=== PATIENT | male | born 1955 | race Caucasian/White ===

== ENCOUNTER → 2020-10-06 04:18 | Outpatient (CLI) | payer OTHER, SELFPAY ==
[2020-10-06 19:03] LABS: SARS-CoV-2 RNA PCR Negative
== END ==
PROVIDERS: PCP Family Medicine; Visit Provider Otolaryngology
DX: Z01.812 Encounter for preprocedural laboratory examination (principal); Z20.822 Contact with and (suspected) exposure to COVID-19
CPT/HCPCS: C9803; U0003; U0005

== ENCOUNTER 2020-10-06 09:45 | Outpatient (CLI) | payer MEDICARE, MEDICAID, SELFPAY ==
--- NOTE | 2020-10-06 09:52 | ECG_ITS ---
Measurements Intervals [place] Rate: 76 P: 62 WI: 161 QRS: -20 QRSD: 141 T: 10 QT: 387 QTc: 437 Interpretive Statements SINUS RHYTHM RIGHT BUNDLE BRANCH BLOCK ABNORMAL ECG Electronically Signed On 10-06-2020 10:01:47 CDT by Antwon Armenta D.O.
== END 2020-10-06 09:46 | disposition home or self-care (01) ==
LOC: ANHSURGERY 09:48
PROVIDERS: PCP Family Medicine; Visit Provider Otolaryngology
DX: I10 Essential (primary) hypertension (principal); Z01.818 Encounter for other preprocedural examination; Z20.822 Contact with and (suspected) exposure to COVID-19; I45.10 Unspecified right bundle-branch block
CPT/HCPCS: 93005; C9803; U0003; U0005

== ENCOUNTER 2020-10-09 02:11 | Day surgery (SDC) | payer OTHER, SELFPAY ==
[2020-10-02 11:40] VITALS: BMI 30.4
--- NOTE | 2020-10-08 09:12 | PM.IMHP ---
H&P: HPI History of Present Illness Date/Time: 10/08/20 09:12 Patient presents for planned septoplasty and turbinate reduction. Reports no new symptoms or changes in his medical history. Chief Complaint: Nasal obstruction, septal deviation, inferior turbinate hypertrophy Review of Systems Constitutional: Constitutional: Denies fatigue, Denies fever(s) and Denies lethargy Eyes: Eyes: Denies blurry vision and Denies change in vision ENT: Reports as per HPI Cardiovascular: Cardiovascular: Denies chest pain Respiratory: Respiratory: Denies cough Endocrine: Endocrine: Denies fatigue Hematologic/Lymphatic: Hematologic/Lymphatic: Denies easy bleeding, Denies easy bruising and Denies lymphadenopathy Allergic/Immunologic: Allergic/Immunologic: Denies seasonal rhinorrhea [facility] Social History Social History (Updated 09/21/20 @ 08:30 by Inez Canales [facility]) Smoking status: Never smoker Alcohol intake: current Drinks per week: 12 Substance use: never Additional living arrangements comments: SIGNIFICANT OTHER Spiritual care concerns: No Meds Home Medications and Allergies Home Medications Medication Instructions Recorded Confirmed Type amlodipine-benazepril 1 cap PO QAM 10/02/20 10/02/20 History fluticasone propionate 1 spray INTRANASAL QAM 10/02/20 10/02/20 History loratadine 10 mg PO QAM 10/02/20 10/02/20 History omeprazole 40 mg PO QAM 10/02/20 10/02/20 History Allergies Allergy/AdvReac Type Severity Reaction Status Date / Time No Known Allergies Allergy Verified 10/02/20 11:37 Exam Const: General: cooperative, healthy appearing, comfortable, well developed and alert HENMT: Head: normal to inspection, normocephalic and atraumatic Ears: hearing grossly normal bilaterally, external ears normal, TM's normal bilaterally and EAC's normal General nose exam: Normal external nose present, Normal nares present, No nasal polyps present and Other nasal findings present ( Significant caudal septal deviation bilateral inferior turbinate hy) Face and sinus: normal facial exam Mouth: Yes Normal oral and palatal mucosa present, Yes lip normal, Yes tongue normal, Yes oropharynx normal and Yes moist mucous membranes Teeth and gingiva: dentition normal and gingiva normal Throat: posterior oropharynx normal, tonsils normal and uvula midline Eyes: General: appearance normal, both eyes and all related structures Periorbital: periorbital findings normal Eyelids: eyelids normal Conjunctivae: conjunctivae normal Sclera: sclerae normal Neck: Neck: normal visual inspection, full ROM and no lymphadenopathy Thyroid: thyroid normal Lymphatic: no lymphadenopathy noted Resp: Effort & Inspection: normal respiratory effort and able to speak in complete sentences Cardio: Jugular venous distension: no JVD Neuro: Cranial nerves: Yes CN's II-XII intact bilaterally Assessment and Plan Assessment and plan (1) Hypertrophy of both inferior nasal turbinates: Code(s): J34.3 - Hypertrophy of nasal turbinates Status: Acute Assessment and Plan: plan is for the OR for an endoscopic assisted septoplasty and inferior turbinate reduction submucosally. The risks were discussed in great detail including bleeding infection damage to surrounding structure change in vision blindness damage to brain CSF leakage and the need for further procedures as well as septal perforation. Patient voiced understanding of these risks and agreed. (2) Nasal septal deviation: Code(s): J34.2 - Deviated nasal septum Status: Acute (3) Nasal obstruction: Code(s): J34.89 - Other specified disorders of nose and nasal sinuses Status: Acute
[2020-10-09] VITALS (9 sets, daily range): BP systolic 128–151; BP diastolic 88–106; PULSE 63–93; RESP 12–20; TEMP 36.3–36.5; O2SAT 92–98
[2020-10-09] MEDS: ACETAMINOPHEN 500 MG TABLET 1000 MG PO (06:31)
[2020-10-09] MEDS: LACTATED RINGERS 1,000 ML 30 ML IV CONT ×2 (06:35→09:00)
--- NOTE | 2020-10-09 06:57 | SUR.PREOP ---
0645-PT AND S.O. AWARE DR. QUIROZ DELAYED WITH TRAFFIC ISSUE.
--- NOTE | 2020-10-09 07:11 | P.PNAN_ITS ---
Anes - Initial Pre Proc Eval Procedure: Operation Date: 10/09/20 07:30 Proposed Procedures p Septoplasty, - Jamel Nath MD s Bilateral Inferior Turbinectomy - Jamel Nath MD Date/Time: 10/09/20 07:11 Surgeon: Jamel Nath MD Pre Op Diagnosis: septal deviation, turbinate hypertrophy Patient Data Age: 64 Gender: M Height: 5 ft 8 in Weight: 90.7 kg Last Vital Signs Temp 97.3 F L 10/09/20 06:06 Pulse 63 10/09/20 06:06 Resp 20 10/09/20 06:06 BP 128/89 10/09/20 06:06 Pulse Ox 98 10/09/20 06:06 Allergies Allergy/AdvReac Type Severity Reaction Status Date / Time No Known Allergies Allergy Verified 10/09/20 06:07 Home Medications Medication Instructions Recorded Confirmed Type amlodipine-benazepril 1 cap PO QAM 10/02/20 10/09/20 History fluticasone propionate 1 spray INTRANASAL QAM 10/02/20 10/09/20 History loratadine 10 mg PO QAM 10/02/20 10/09/20 History omeprazole 40 mg PO QAM 10/02/20 10/09/20 History Patient hx anesthesia problems: none Family hx anesthesia problems: none [facility] Past Medical History Medical History (Updated 10/09/20 @ 07:11 by David Marrero MD) GERD (gastroesophageal reflux disease) Hypertension Social History Social History (Updated 09/21/20 @ 08:30 by Inez Canales CMA) Smoking status: Never smoker Alcohol intake: current Drinks per week: 12 Substance use: never Living arrangements: other Additional living arrangements comments: SIGNIFICANT OTHER Spiritual care concerns: No Anes - Eval Final PreProcedure Day of Procedure 10/09/20 07:11 Patient weight: obese Heart: regular rate and rhythm Lungs: clear to auscultation Airway: Mallampati scale class II Neurological: alert and oriented Last oral intake: >/= 8 hours ASA classification: III Emergent: no Anesthetic plan: proceed Anesthesia type and monitoring: general ETT and standard monitoring Informed Consent: The patient's anesthetic plan and its attendant risks and benefits were discussed with the patient/family/POA. Questions were solicited and answers provided to the satisfaction of the patient/family/POA.
--- NOTE | 2020-10-09 07:16 | WPDHPUPDATE1 ---
History and Physical Update Update Date/Time: 10/09/20 07:16 History and Physical has been reviewed, including an updated exam of the patient. There are NO changes in the patient's condition. Risks, benefits, and alternatives have been discussed and questions answered. Patient agrees to proceed with procedure.
[2020-10-09] MEDS: OXYMETAZOLINE HCL 0.05% NAS 15 ML BTL (*BKC) 1 SPRAY NASAL (07:24)
[2020-10-09] MEDS: ceFAZolin 2 GM/D5W 50 ML 2 GM/50 ML BAG IVPB (07:24)
[2020-10-09] MEDS: LIDO 1%/EPINEPHRINE 1:100,000 50 ML VIAL INFILTRATE (07:36)
--- NOTE | 2020-10-09 09:14 | PM.PROC ---
Procedure Note - Detailed Date of procedure: 10/09/20 Pre-op diagnosis: septal deviation, turbinate hypertrophy Post-op diagnosis: same Procedure performed: Endoscopic assisted septoplasty Inferior turbinate reduction submucosally with outfracture Description of procedure: The patient was correctly identified and consent was verified in the preoperative holding area. The patient was then brought to the operating room and a time-out was performed. General anesthesia was induced and endotracheal tube was secured the patient's airway and taped to the left lower lip. Afrin-soaked pledgets were placed in the bilateral nasal passages and allowed to sit for 5 minutes. These were removed. The patient was then prepped and draped for the aforementioned procedure. Under endoscopic guidance the bilateral nasal passages reviewed there is left anterior septal deviation bilateral inferior turbinate hypertrophy as well as right mid severe septal deviation. Eric transection was performed on the left side following the injection of 5 cc of 1% lidocaine with 1 100,000 parts epinephrine into the submucosal a submucoperichondrial space in the nasal septum. Eric transection was performed on the left and a left-sided mucoperichondrial flap was elevated with no perforations. The septum was then transected and a right mucoperichondrial flap was elevated again with no perforations. The deviated nasal septum was removed with endoscopic scissors, [place] Wade forceps, and a dov elevator. At this point it became evident that there was a polypoid mass in the right nasal passages appearing to emanate from the right middle meatal region. This was biopsied multiple times and debrided inferiorly. The left anterior inferior turbinate was entered and debrided in the submucosal plane. Was then outfractured. A similar procedure was performed on the right inferior turbinate. The anterior nasal septum was closed using 4 interrupted 5 0 fast gut sutures. Hemostasis was noted to be adequate and Cheng splints were then placed and sutured anteriorly using a 3 0 nylon suture. This marked end of the procedure. Care the patient was turned over to Anesthesiology. I performed all dictated portions. Anesthesia: GETA Surgeon: Jamel Nath MD Estimated blood loss (mL): 10 Drains: No Packing: No Pathology: yes Complications: No immediate complications Condition: stable Disposition: PACU Findings: Deviated nasal septum straightened following surgery. Right sided polypoid sinonasal mass biopsies sent.
[2020-10-09] MEDS: hydrALAZINE HCL 20 MG/ML VIAL 5 MG IV PUSH ×2 (09:40→09:50)
== END 2020-10-09 10:45 | disposition home or self-care (01) ==
PROVIDERS: PCP Family Medicine; Visit Provider Otolaryngology
PROC: (CPT 30520; principal; 2020-10-09 07:30)
PROC: (CPT 30520; 2020-10-09 07:30)
DX: J34.89 Other specified disorders of nose and nasal sinuses (principal); J34.2 Deviated nasal septum; J34.3 Hypertrophy of nasal turbinates; K21.9 Gastro-esophageal reflux disease without esophagitis; E66.9 Obesity, unspecified; Z68.30 Body mass index [BMI] 30.0-30.9, adult; J33.9 Nasal polyp, unspecified; I10 Essential (primary) hypertension
CPT/HCPCS: 30520; 30140; 88304; 88305; A9270; J0330; J0360; J0690; J2250; J2370; J2405; J2704; J3010; J7120

== ENCOUNTER 2021-01-22 07:46 | Outpatient (CLI) | payer MEDICARE, MEDICAID, SELFPAY ==
--- NOTE | ~2021-01-22 | CT_ITS ---
EXAMINATION: CT sinus wo con DATE: 01/22/2021 07:58 INDICATION: Nasal polyp TECHNIQUE: Computed tomography (CT) of the paranasal sinuses was performed without contrast. Iterativ e reconstruction technique was employed. Exam dose: 271.75 mGy-cm total exam DLP. COMPARISON: None FINDINGS: There is minimal rightward bowing of the nasal septum. There is soft tissue thickening of the nasal turbinates bilaterally. The right middle nasal turbinate is completely engulfed by soft tissue thickening of the nasal cavity and completely opacified right middle meatus. There is complete opacification of the right frontal sinus, right ethmoid air cells and right maxilla ry sinus. There is complete opacification of the right ostiomeatal unit. There is soft tissue opacification of the left maxillary ostium and partial opacification of the left infundibulum There is mild mucoperiosteal thickening of the left frontal sinus and patchy opacification of left et hmoid air cells. There is minimal mucoperiosteal thickening of the left maxillary sinus. There is moderate mucoperiosteal thickening of the right sphenoid sinus and mild mucoperiosteal inter reanna left sphenoid sinus. The mastoid air cells are normally developed and aerated. IMPRESSION: Complete opacification of right frontal sinus, ethmoid air cells, maxillary sinus and ri ght ostiomeatal unit Extensive opacification of right nasal cavity, right middle meatus Mild mucoperiosteal thickening of left frontal sinus, patchy opacification of left ethmoid air cells, minimal mucoperiosteal thickening of left maxillary sinus Bilateral sphenoid sinus mucoperiosteal thickening, moderate on the right, mild on the left Prominent soft tissue the left maxillary ostium and partial opacification of left infundibulum Reviewed, dictated and finalized at [facility]. Reviewed, dictated and finalized at [facility]. IMPRESSION: Complete opacification of right frontal sinus, ethmoid air cells, maxillary sinus and right ostiomeatal unit Extensive opacification of right nasal cavity, right middle meatus Mild mucoperiosteal thickening of left frontal sinus, patchy opacification of l eft ethmoid air cells, minimal mucoperiosteal thickening of left maxillary sinu s Bilateral sphenoid sinus mucoperiosteal thickening, moderate on the right, mild on the left Prominent soft tissue the left maxillary ostium and partial opacification of le ft infundibulum
== END 2021-01-22 07:47 | disposition home or self-care (01) ==
LOC: ANHIMG 07:47
PROVIDERS: PCP Family Medicine; Visit Provider Otolaryngology
DX: J33.9 Nasal polyp, unspecified (principal); J34.89 Other specified disorders of nose and nasal sinuses
CPT/HCPCS: 70486

== ENCOUNTER → 2021-02-23 03:19 | Outpatient (CLI) | payer MEDICARE, MEDICAID, SELFPAY ==
[2021-02-23 19:41] LABS: SARS-CoV-2 RNA PCR Negative
== END ==
PROVIDERS: PCP Family Medicine; Visit Provider Otolaryngology
DX: Z01.812 Encounter for preprocedural laboratory examination (principal); Z20.822 Contact with and (suspected) exposure to COVID-19
CPT/HCPCS: C9803; U0003; U0005

== ENCOUNTER 2021-02-26 02:46 | Day surgery (SDC) | payer MEDICARE, MEDICAID, SELFPAY ==
[2021-02-19 10:05] VITALS: BMI 30.4
--- NOTE | 2021-02-25 09:11 | PM.IMHP ---
H&P: HPI History of Present Illness Date/Time: 02/25/21 09:11 patient presents for planned surgical procedure. No change in symptoms. No change in medical history. Chief Complaint: Nasal obstruction nasal congestion nasal polyps chronic sinusitis Review of Systems Constitutional: Constitutional: Denies fatigue, Denies fever(s) and Denies lethargy Eyes: Eyes: Denies blurry vision and Denies change in vision ENT: Reports as per HPI Cardiovascular: Cardiovascular: Denies chest pain Respiratory: Respiratory: Denies cough Endocrine: Endocrine: Denies fatigue Hematologic/Lymphatic: Hematologic/Lymphatic: Denies easy bleeding, Denies easy bruising and Denies lymphadenopathy Allergic/Immunologic: Allergic/Immunologic: Denies seasonal rhinorrhea [facility] Past Medical History Medical History GERD (gastroesophageal reflux disease) Hypertension Social History Social History Smoking status: Never smoker Alcohol intake: current Drinks per week: 12 Substance use: current Substance use type: marijuana Additional living arrangements comments: [facility]ATE Spiritual care concerns: No Meds Home Medications and Allergies Home Medications Medication Instructions Recorded Confirmed Type amlodipine-benazepril 1 cap PO QAM 10/02/20 02/19/21 History omeprazole 40 mg PO QAM 10/02/20 02/19/21 History Allergies Allergy/AdvReac Type Severity Reaction Status Date / Time No Known Allergies Allergy Verified 02/19/21 09:59 Exam Const: General: cooperative, healthy appearing, comfortable, well developed and alert HENMT: Head: normal to inspection, normocephalic and atraumatic Ears: hearing grossly normal bilaterally, external ears normal, TM's normal bilaterally and EAC's normal General nose exam: Normal external nose present, Normal nares present, nasal polyps ( nasal polyps), Normal nasal mucous membranes and turbinates present and Normal septum present Face and sinus: normal facial exam Mouth: Yes Normal oral and palatal mucosa present, Yes lip normal, Yes tongue normal, Yes oropharynx normal and Yes moist mucous membranes Teeth and gingiva: dentition normal and gingiva normal Throat: posterior oropharynx normal, tonsils normal and uvula midline Eyes: General: appearance normal, both eyes and all related structures Periorbital: periorbital findings normal Eyelids: eyelids normal Conjunctivae: conjunctivae normal Sclera: sclerae normal Neck: Neck: normal visual inspection, full ROM and no lymphadenopathy Thyroid: thyroid normal Lymphatic: no lymphadenopathy noted Resp: Effort & Inspection: normal respiratory effort and able to speak in complete sentences Cardio: Jugular venous distension: no JVD Neuro: Cranial nerves: Yes CN's II-XII intact bilaterally Assessment and Plan Assessment and plan (1) Nasal polyps: Code(s): J33.9 - Nasal polyp, unspecified Status: Acute Assessment and Plan: plan is for the operating room for image guided bilateral maxillary antrostomies total ethmoidectomies frontal sinusotomies sphenoidotomies, no septoplasty, no turbinate reduction, total operative time 2:00 a.m.. The risks were discussed in great detail including bleeding infection brain damage CSF leak blindness change in vision postoperative bleeding need for postoperative pain medication. Patient voiced understanding of these risks and agreed. (2) Chronic sinusitis: Code(s): J32.9 - Chronic sinusitis, unspecified Status: Acute (3) Nasal obstruction: Code(s): J34.89 - Other specified disorders of nose and nasal sinuses Status: Acute
--- NOTE | 2021-02-26 07:07 | WPDHPUPDATE1 ---
History and Physical Update Update Date/Time: 02/26/21 07:07 History and Physical has been reviewed, including an updated exam of the patient. There are NO changes in the patient's condition. Risks, benefits, and alternatives have been discussed and questions answered. Patient agrees to proceed with procedure.
[2021-02-26] MEDS: ACETAMINOPHEN 500 MG TABLET 1000 MG PO (09:25)
[2021-02-26] MEDS: LACTATED RINGERS 1,000 ML 30 ML IV CONT ×2 (09:26→12:39)
--- NOTE | 2021-02-26 09:37 | WPDANESEPPF ---
Anes - Initial Pre Proc Eval Procedure: Operation Date: 02/26/21 11:00 Proposed Procedures p Image Guided Bilateral Maxillary Antrostomy, Total Ethmoidectomy, Bilateral Sphenoidectomy, Frontal Sinusotomy - Jamel Nath MD Date/Time: 02/26/21 09:37 Surgeon: Jamel Nath MD Pre Op Diagnosis: chronic sinusitis Patient Data Age: 65 Gender: M Height: 1.73 m Weight: 91 kg Allergies Allergy/AdvReac Type Severity Reaction Status Date / Time No Known Allergies Allergy Verified 02/19/21 09:59 Home Medications Medication Instructions Recorded Confirmed Type amlodipine-benazepril 1 cap PO QAM 10/02/20 02/19/21 History omeprazole 40 mg PO QAM 10/02/20 02/19/21 History prednisone 20 mg tablet 40 mg PO DAILY #1 tablet 02/25/21 Rx Patient hx anesthesia problems: none Family hx anesthesia problems: none [facility] Past Medical History Medical History GERD (gastroesophageal reflux disease) Hypertension Social History Social History Smoking status: Never smoker Alcohol intake: current Drinks per week: 12 Substance use: current Substance use type: marijuana Living arrangements: other Additional living arrangements comments: ROOM[facility]ATE Spiritual care concerns: No Anes - Eval Final PreProcedure Day of Procedure 02/26/21 09:37 Patient weight: overweight Heart: regular rate and rhythm Lungs: clear to auscultation Airway: Mallampati scale class II Neurological: alert and oriented Last oral intake: >/= 8 hours ASA classification: III Emergent: no Anesthetic plan: proceed Anesthesia type and monitoring: general ETT and standard monitoring Informed Consent: The patient's anesthetic plan and its attendant risks and benefits were discussed with the patient/family/POA. Questions were solicited and answers provided to the satisfaction of the patient/family/POA.
[2021-02-26 10:00] VITALS: BP 140/79; PULSE 60; RESP 18; TEMP 36.8; O2SAT 98
[2021-02-26] MEDS: ceFAZolin 2 GM/D5W 50 ML 2 GM/50 ML BAG IVPB (10:19)
[2021-02-26] MEDS: OXYMETAZOLINE HCL 0.05% NAS 15 ML BTL (*BKC) 1 SPRAY NASAL ×2 (10:31→11:59)
[2021-02-26 12:39] VITALS: BP 131/98; PULSE 74; RESP 14; TEMP 36.1; O2SAT 100
[2021-02-26 12:55] VITALS: BP 133/92; PULSE 80; RESP 10; O2SAT 96
[2021-02-26 13:04] VITALS: BP 152/102; PULSE 74; RESP 12
[2021-02-26 13:25] VITALS: BP 148/96; PULSE 72; RESP 12
--- NOTE | 2021-02-26 13:54 | P.OP_ITS ---
Procedure Note - Detailed Date of Procedure 02/26/21 Pre-op Diagnosis chronic sinusitis, nasal polyps Post-op Diagnosis same Procedure Performed 1. Bilateral image guided endoscopic maxillary antrostomies right with tissue removal 2. Bilateral image guided total ethmoidectomies 3. Bilateral image guided Sphenoidotomies 4. Bilateral image guided Frontal sinusotomies 5. Left middle turbinectomy Surgeon Jamel Nath MD Continuous Improvement Specialist None Anesthesia general Indications See above Findings Polyp disease on the left side copious amounts of polyp polypoid tissue as well as purulence and all the right-sided sinuses Description of Procedure Patient was correctly identified and consent was verified in the preoperative holding area. The patient was then brought to the operating room and a time-out was performed. General anesthesia was induced and endotracheal tube was secured the patient's airway and taped to the left lower lip. Image guidance was initiated and confirmed. Afrin-soaked pledgets were allowed to sit for 5 minutes then removed. Patient was prepped and draped for the aforementioned procedures. Second time-out was performed. Under 0 degree endoscopic guidance the bilateral nasal passages were reviewed with the aforementioned findings noted. Backbiter double ball tip probe straight through cut and microdebrider utilized to perform left maxillary antrostomy. Kerrison and microdebrider utilized to perform total ethmoidectomy his sphenoid punch and Kerrison utilized to perform sphenoidotomy Kerrison punch utilized to gently remove partitions along the skull base and orbit. 70 degree scope utilized to perform frontal sinusotomy with 70 degree curved image guided suction. Cobra and Hosemann punch utilized for month partition from the superior agger Nasi cell opening the left frontal outflow tract. Of note the exact same procedures were performed on the right side. The difference in findings of that the right maxillary sinus had copious amounts of disease purulence there purulence in the right frontal outflow tract purulence in the right ethmoid cavities. The left middle turbinate was removed as it was very flimsy and kept a lateralizing. It also coles d polypoid disease on it. Tightening base packing was placed bilaterally hemostasis was adequate this was achieved using intermittent application of Afrin-soaked pledges. I performed all dictated portions of the procedure. There were no immediate complications. Care the patient was turned over to Anesthesiology. Estimated Blood Loss -150.0 Drains No Packing Yes (Absorbable) Pathology none sent Complications No immediate complications Condition stable Disposition PACU
== END 2021-02-26 13:38 | disposition home or self-care (01) ==
PROVIDERS: PCP Family Medicine; Visit Provider Otolaryngology
PROC: (CPT 31267; principal; 2021-02-26 11:00)
DX: J32.9 Chronic sinusitis, unspecified (principal); J33.8 Other polyp of sinus; I10 Essential (primary) hypertension; Z79.899 Other long term (current) drug therapy; F41.9 Anxiety disorder, unspecified
CPT/HCPCS: 31267; 31256; 31253; 31257; 61782; A9270; J0330; J0690; J1100; J2250; J2405; J2704; J3010; J7120